=== PATIENT | male | born 1980 ===

== ENCOUNTER 2021-02-15 09:44 | Inpatient (IN) ==
[2021-02-15] MEDS ORDERED: Albuterol HFA INHALER 8 gm MDI INH PRN (12:46)
[2021-02-15] MEDS ORDERED: Dextrose 50% Syringe 50 ml 25 GM/50 ML SYRINGE IV PUSH PRN (12:52)
[2021-02-15] MEDS ORDERED: Acetylcysteine 600mgCAP(RENAL) PO SCH (13:00)
[2021-02-15] MEDS: cefTRIAXone 1 gm/50 mL NS BAG 1 GM/50 ML BAG IVPB SCH (13:51)
[2021-02-15] MEDS: Azithromycin 500 mg/250 ml NS 500 MG/250 ML BAG IVPB SCH (14:27)
[2021-02-15 14:38] LABS: ABS Lymphocytes 0.4 10^3/ul (1.0-4.8); ABS Monocytes 0.4 10^3/ul (0-0.8); ABS Neutrophils 4.2 10^3/ul (1.5-7.7); Eosinophil % 0.1 %; Hematocrit 45 % (42-52); Lymphocyte % 7.5 %; Mean Corpuscular HGB Conc 34 g/dL (31-36); Mean Corpuscular Hemoglobin 30 pg (27-31); Mean Corpuscular Volume 90 fL (80-94); Mean Platelet Volume 8.5 fL (7.4-10.4); Nucleated Red Blood Cells % 0.1; Platelet Count 156 10^3/uL (150-450); Red Blood Count 4.95 10^6 /uL (4.18-5.48); Red Cell Distribution Width 13 % (10-15)
[2021-02-15 14:45] LABS: INR 1.31 (0.82-1.09)
[2021-02-15 14:54] LABS: ALT 102 U/L (7-52); AST 71 U/L (13-39); Albumin 3.3 g/dL (3.2-5.2); Alkaline Phosphatase 67 U/L (35-149); Anion Gap 8 mmol/L (2-11); Blood Urea Nitrogen 22 mg/dL (6-24); CO2 Carbon Dioxide 25 mmol/L (22-32); Calcium 9.1 mg/dL (8.6-10.3); Chloride 105 mmol/L (101-111); EGFR African American 137.5 (>60); EGFR Non-African American 113.7 (>60); Globulin 3.2 g/dL (2-4); Glucose 337 mg/dL (70-100); Magnesium 2.2 mg/dL (1.9-2.7); Phosphorus 2.1 mg/dL (2.5-5.0); Potassium 3.9 mmol/L (3.5-5.0); Sodium 138 mmol/L (135-145); Total Protein 6.5 g/dL (6.4-8.9)
[2021-02-15 15:57] LABS: LDH 406 U/L (140-271)
[2021-02-15] MEDS ORDERED: TOCILIZUMAB IVPB ONE (16:00)
[2021-02-15] MEDS ORDERED: Tocilizumab 800 MG in NS 0.9% 100 ml BAG 60 ML IVPB ONE (16:00)
[2021-02-15] MEDS ORDERED: Potassium Phosphate IV 15 MMOLE in NS 0.9% 250 ml 250 ML IVPB ONE (16:13)
[2021-02-15 16:20] LABS: Ferritin > 1500.0 ng/mL (24-336)
[2021-02-15] MEDS: Enoxaparin 60 MG/0.6 ML SYR SUBCUT SCH (20:15)
[2021-02-15] MEDS: Acetylcysteine 600mgCAP(RENAL) PO SCH (20:18)
[2021-02-16 06:40] LABS: INR 1.23 (0.82-1.09)
[2021-02-16 06:42] LABS: Albumin 3.1 g/dL (3.2-5.2); Calcium 8.7 mg/dL (8.6-10.3); EGFR African American 144.2 (>60); EGFR Non-African American 119.1 (>60); Globulin 3.2 g/dL (2-4); Total Bilirubin 0.7 mg/dL (0.2-1.0); Total Protein 6.3 g/dL (6.4-8.9)
[2021-02-16] MEDS: Remdesivir 100 mg Vial 100 MG in NS 0.9% 250 ml 230 ML IV SCH (07:13)
[2021-02-16] MEDS: Acetylcysteine 600mgCAP(RENAL) PO SCH ×2 (07:14→19:58)
[2021-02-16] MEDS: Enoxaparin 60 MG/0.6 ML SYR SUBCUT SCH ×2 (07:14→19:58)
[2021-02-16] MEDS: Multivitamins/Minerals TAB PO SCH (07:14)
[2021-02-16 08:47] LABS: Hematocrit 42 % (42-52); Hemoglobin 14.2 g/dL (14.0-18.0); Mean Corpuscular HGB Conc 34 g/dL (31-36); Mean Corpuscular Hemoglobin 31 pg (27-31); Mean Corpuscular Volume 90 fL (80-94); Mean Platelet Volume 8.8 fL (7.4-10.4); Platelet Count 160 10^3/uL (150-450); Red Blood Count 4.66 10^6 /uL (4.18-5.48); Red Cell Distribution Width 13 % (10-15); White Blood Count 4.8 10^3/uL (3.5-10.8)
[2021-02-16 08:55] LABS: Magnesium 2.4 mg/dL (1.9-2.7); Phosphorus 3.1 mg/dL (2.5-5.0)
[2021-02-16] MEDS ORDERED: Dexamethasone IV 4 MG/ML VIAL 1 ml VIAL IV SLOW PU SCH (09:00)
[2021-02-16] MEDS: methylPREDNISolone SOD 40 mg/ml 1 ml VIAL IV SCH ×2 (09:44→17:39)
[2021-02-16] MEDS: Azithromycin 500 mg/250 ml NS 500 MG/250 ML BAG IVPB SCH (11:49)
[2021-02-16 12:06] LABS: Influenza A Molecular Negative (Negative); Influenza B Molecular Negative (Negative)
[2021-02-16] MEDS: cefTRIAXone 1 gm/50 mL NS BAG 1 GM/50 ML BAG IVPB SCH (13:05)
[2021-02-16] MEDS: Famotidine IV 10 MG/ML 2 ml VIAL (20 mg) IV SLOW PU SCH (19:58)
[2021-02-17] MEDS: methylPREDNISolone SOD 40 mg/ml 1 ml VIAL IV SCH ×3 (04:21→17:58)
[2021-02-17 04:50] LABS: Hematocrit 41 % (42-52); Hemoglobin 13.9 g/dL (14.0-18.0); Mean Corpuscular HGB Conc 34 g/dL (31-36); Mean Corpuscular Hemoglobin 31 pg (27-31); Mean Corpuscular Volume 90 fL (80-94); Mean Platelet Volume 8.6 fL (7.4-10.4); Platelet Count 171 10^3/uL (150-450); Red Blood Count 4.54 10^6 /uL (4.18-5.48); Red Cell Distribution Width 13 % (10-15); White Blood Count 4.8 10^3/uL (3.5-10.8)
[2021-02-17 04:54] LABS: INR 1.27 (0.82-1.09)
[2021-02-17 05:25] LABS: Albumin/Globulin Ratio 0.9 (1-3); Calcium 8.9 mg/dL (8.6-10.3); EGFR African American 162.2 (>60); EGFR Non-African American 134.1 (>60); Globulin 3.2 g/dL (2-4); Magnesium 2.3 mg/dL (1.9-2.7); Phosphorus 3.7 mg/dL (2.5-5.0); Potassium 4.4 mmol/L (3.5-5.0); Total Bilirubin 0.8 mg/dL (0.2-1.0); Total Protein 6.2 g/dL (6.4-8.9)
[2021-02-17] MEDS: Enoxaparin 60 MG/0.6 ML SYR SUBCUT SCH ×2 (08:38→20:19)
[2021-02-17] MEDS: Multivitamins/Minerals TAB PO SCH (08:38)
[2021-02-17] MEDS: Famotidine IV 10 MG/ML 2 ml VIAL (20 mg) IV SLOW PU SCH ×2 (08:38→20:20)
[2021-02-17] MEDS: Remdesivir 100 mg Vial 100 MG in NS 0.9% 250 ml 230 ML IV SCH (08:45)
[2021-02-17] MEDS: Acetylcysteine 600mgCAP(RENAL) PO SCH ×2 (08:45→20:18)
[2021-02-17] MEDS ORDERED: Insulin GLARGINE 100 un/ml 10 ml VIAL SUBCUT SCH (09:00)
[2021-02-17] MEDS ORDERED: Furosemide 20 mg/2 ml IV VIAL IV SLOW PU ONE (10:35)
[2021-02-17 11:29] LABS: Glucose Confirmatory 400 mg/dL (70-100)
[2021-02-17] MEDS: cefTRIAXone 1 gm/50 mL NS BAG 1 GM/50 ML BAG IVPB SCH (13:39)
[2021-02-17] MEDS: Azithromycin 500 mg/250 ml NS 500 MG/250 ML BAG IVPB SCH (14:42)
[2021-02-17 17:22] LABS: Glucose Confirmatory 419 mg/dL (70-100)
[2021-02-17] MEDS: Insulin GLARGINE 100 un/ml 10 ml VIAL SUBCUT SCH (20:20)
[2021-02-18] MEDS ORDERED: Furosemide 40 mg/4 ml IV VIAL IV SLOW PU ONE (02:58)
[2021-02-18] MEDS: methylPREDNISolone SOD 40 mg/ml 1 ml VIAL IV SCH ×3 (03:14→17:29)
[2021-02-18 06:37] LABS: Hematocrit 43 % (42-52); Hemoglobin 14.7 g/dL (14.0-18.0); Mean Corpuscular HGB Conc 35 g/dL (31-36); Mean Corpuscular Hemoglobin 31 pg (27-31); Mean Corpuscular Volume 89 fL (80-94); Platelet Count 189 10^3/uL (150-450); Red Blood Count 4.78 10^6 /uL (4.18-5.48); Red Cell Distribution Width 13 % (10-15)
[2021-02-18 06:46] LABS: Albumin 3.2 g/dL (3.2-5.2); Calcium 9.1 mg/dL (8.6-10.3); EGFR African American 135.4 (>60); EGFR Non-African American 111.9 (>60); Globulin 3.2 g/dL (2-4); Magnesium 2.3 mg/dL (1.9-2.7); Phosphorus 3.8 mg/dL (2.5-5.0); Potassium 4.2 mmol/L (3.5-5.0); Total Bilirubin 1.1 mg/dL (0.2-1.0); Total Protein 6.4 g/dL (6.4-8.9)
[2021-02-18 06:53] LABS: INR 1.2 (0.82-1.09)
[2021-02-18] MEDS: Multivitamins/Minerals TAB PO SCH (09:11)
[2021-02-18] MEDS: Famotidine IV 10 MG/ML 2 ml VIAL (20 mg) IV SLOW PU SCH ×2 (09:11→20:09)
[2021-02-18] MEDS: Enoxaparin 60 MG/0.6 ML SYR SUBCUT SCH ×2 (09:11→20:09)
[2021-02-18] MEDS: Acetylcysteine 600mgCAP(RENAL) PO SCH ×2 (09:12→20:08)
[2021-02-18] MEDS: Insulin GLARGINE 100 un/ml 10 ml VIAL SUBCUT SCH ×2 (09:12→20:09)
[2021-02-18] MEDS ORDERED: Insulin GLARGINE 100 un/ml 10 ml VIAL SUBCUT ONE (09:30)
[2021-02-18] MEDS: Remdesivir 100 mg Vial 100 MG in NS 0.9% 250 ml 230 ML IV SCH (09:32)
[2021-02-18] MEDS: cefTRIAXone 1 gm/50 mL NS BAG 1 GM/50 ML BAG IVPB SCH (13:29)
[2021-02-18] MEDS: Azithromycin 500 mg/250 ml NS 500 MG/250 ML BAG IVPB SCH (14:26)
[2021-02-19] MEDS: methylPREDNISolone SOD 40 mg/ml 1 ml VIAL IV SCH ×3 (00:59→20:33)
[2021-02-19 06:33] LABS: ALT 103 U/L (7-52); Albumin 2.9 g/dL (3.2-5.2); Albumin/Globulin Ratio 1.1 (1-3); Alkaline Phosphatase 57 U/L (35-149); Blood Urea Nitrogen 27 mg/dL (6-24); CO2 Carbon Dioxide 23 mmol/L (22-32); Calcium 7.9 mg/dL (8.6-10.3); Chloride 106 mmol/L (101-111); EGFR Non-African American 152.9 (>60); Globulin 2.6 g/dL (2-4); Glucose 279 mg/dL (70-100); Magnesium 2.1 mg/dL (1.9-2.7); Sodium 134 mmol/L (135-145); Total Protein 5.5 g/dL (6.4-8.9)
[2021-02-19 06:49] LABS: Anion Gap 5 mmol/L (2-11)
[2021-02-19] MEDS ORDERED: Furosemide 40 mg/4 ml IV VIAL IV SLOW PU ONE ×2 (07:19→09:26)
[2021-02-19] MEDS: Acetylcysteine 600mgCAP(RENAL) PO SCH (08:46)
[2021-02-19] MEDS: Multivitamins/Minerals TAB PO SCH (08:46)
[2021-02-19] MEDS: Insulin GLARGINE 100 un/ml 10 ml VIAL SUBCUT SCH ×2 (08:47→20:33)
[2021-02-19] MEDS: Enoxaparin 60 MG/0.6 ML SYR SUBCUT SCH ×2 (08:48→20:32)
[2021-02-19] MEDS: Famotidine IV 10 MG/ML 2 ml VIAL (20 mg) IV SLOW PU SCH ×2 (08:52→20:32)
[2021-02-19] MEDS ORDERED: methylPREDNISolone SOD 40 mg/ml 1 ml VIAL IV SCH (11:00)
[2021-02-19] MEDS: cefTRIAXone 1 gm/50 mL NS BAG 1 GM/50 ML BAG IVPB SCH (12:24)
[2021-02-19] MEDS: Azithromycin 500 mg/250 ml NS 500 MG/250 ML BAG IVPB SCH (12:53)
[2021-02-20 07:56] LABS: Albumin 3.2 g/dL (3.2-5.2); Albumin/Globulin Ratio 1.1 (1-3); Calcium 9.2 mg/dL (8.6-10.3); EGFR African American 133.4 (>60); EGFR Non-African American 110.3 (>60); Globulin 2.9 g/dL (2-4); Potassium 4.6 mmol/L (3.5-5.0); Total Bilirubin 1.3 mg/dL (0.2-1.0); Total Protein 6.1 g/dL (6.4-8.9)
[2021-02-20] MEDS: Multivitamins/Minerals TAB PO SCH (09:13)
[2021-02-20] MEDS: Famotidine IV 10 MG/ML 2 ml VIAL (20 mg) IV SLOW PU SCH ×3 (09:13→22:28)
[2021-02-20] MEDS: methylPREDNISolone SOD 40 mg/ml 1 ml VIAL IV SCH ×2 (09:14→20:50)
[2021-02-20] MEDS: Enoxaparin 60 MG/0.6 ML SYR SUBCUT SCH ×2 (09:14→20:51)
[2021-02-20] MEDS: Insulin GLARGINE 100 un/ml 10 ml VIAL SUBCUT SCH ×2 (09:14→20:53)
[2021-02-21 05:56] LABS: Albumin 3.3 g/dL (3.2-5.2); Albumin/Globulin Ratio 1.1 (1-3); Calcium 9.3 mg/dL (8.6-10.3); EGFR African American 137.5 (>60); EGFR Non-African American 113.7 (>60); Globulin 2.9 g/dL (2-4); Total Bilirubin 1.2 mg/dL (0.2-1.0); Total Protein 6.2 g/dL (6.4-8.9)
[2021-02-21 06:00] LABS: Potassium 5.1 mmol/L (3.5-5.0)
[2021-02-21] MEDS: Enoxaparin 60 MG/0.6 ML SYR SUBCUT SCH (08:21)
[2021-02-21] MEDS: Famotidine IV 10 MG/ML 2 ml VIAL (20 mg) IV SLOW PU SCH (08:22)
[2021-02-21] MEDS: Multivitamins/Minerals TAB PO SCH (08:23)
[2021-02-21] MEDS: Insulin GLARGINE 100 un/ml 10 ml VIAL SUBCUT SCH (08:27)
[2021-02-21 12:02] VITALS: BP 109/63
== END 2021-02-21 15:13 | disposition home or self-care (01) | DRG 177 ==
LOC: ICU 11:44 → MED 02-19 19:27
PROVIDERS: ADMIT Internal Medicine Critical Care Medicine; ATTEND Internal Medicine